=== PATIENT | female | born 1995 | race Caucasian/White ===

== ENCOUNTER → 2018-03-31 | Outpatient (CLI) | payer BC ==
[~2018-03-31] MED LIST: CETI10; HYDACE5 PO; PRED10 PO; SULF10OPSA OU; TRIA80TC TOP
[2018-04-07 17:09] LABS: CHLAMYDIA BY NAA Negative (Negative); GONOCOCCUS BY NAA Negative (Negative); TRICH VAG BY NAA Negative (Negative)
== END | disposition home or self-care (01) ==
LOC: LAB SHORT 12:19 → LAB 12:19
PROVIDERS: Advanced Practice Midwife
DX: Z01.419 Encounter for gynecological examination (general) (routine) without abnormal findings (principal); Z11.3 Encounter for screening for infections with a predominantly sexual mode of transmission
CPT/HCPCS: 87491; 87591; 87661; G0123

== ENCOUNTER → 2022-01-18 | Outpatient (CLI) | payer BC | LOC: LAB SHORT 14:30 | PROVIDERS: Registered Nurse Community Health | DX: Z12.4 Encounter for screening for malignant neoplasm of cervix (principal) | CPT/HCPCS: G0123 ==

== ENCOUNTER → 2022-01-19 | Outpatient (CLI) | payer BC ==
[2022-01-19 20:49] LABS: Free Thyroxine 0.94 ng/dL (0.70-1.60)
[2022-01-19 20:50] LABS: Thyroid Stimulating Hormone 2.5 uIU/mL (0.360-4.800); Triiodothyronine, Free 3.08 pg/mL (2.18-3.98)
== END ==
LOC: LAB SHORT 15:20
PROVIDERS: Registered Nurse Community Health
DX: L65.9 Nonscarring hair loss, unspecified (principal)
CPT/HCPCS: 82306; 84439; 84443; 84481

== ENCOUNTER 2022-07-19 09:06 | Day surgery (SDC) | payer OTHER ==
[~2022-07-19] VITALS: Ht 172.7 cm; Wt 57.4 kg
--- NOTE | 2022-07-19 11:32 | NUR ---
07/19/22 1132 ELISHA NOBLES EXEC ASSTNT PRESENT FOR ENTIRE EXAM PROCESS. END NOTE
== END 2022-07-19 12:06 | disposition home or self-care (01) ==
LOC: ORSCSDS 09:06
PROVIDERS: Internal Medicine Gastroenterology
PROC: 0DD78ZX Extraction of Stomach, Pylorus, Via Natural or Artificial Opening Endoscopic, Diagnostic (ICD-10-PCS; principal; 2022-07-19 11:00)
PROC: 0DBE8ZX Excision of Large Intestine, Via Natural or Artificial Opening Endoscopic, Diagnostic (ICD-10-PCS; principal; 2022-07-19 11:00)
PROC: 0DD98ZX Extraction of Duodenum, Via Natural or Artificial Opening Endoscopic, Diagnostic (ICD-10-PCS; principal; 2022-07-19 11:00)
DX: R19.4 Change in bowel habit (principal); R19.7 Diarrhea, unspecified; F45.8 Other somatoform disorders; K21.00 Gastro-esophageal reflux disease with esophagitis, without bleeding; K64.8 Other hemorrhoids
CPT/HCPCS: 88305; 88342; J2704; J7120